=== PATIENT | male | born 1975 | race Caucasian/White ===

== ENCOUNTER 2022-01-24 10:26 | Outpatient (RCR) | payer OTHER, SELFPAY ==
[2022-01-24 10:54] VITALS: BMI 36.0
[2022-01-24 11:46] VITALS: BMI 36.0
== END 2022-04-16 08:23 | disposition home or self-care (01) ==
LOC: ANHDMC 10:26
PROVIDERS: PCP Internal Medicine; Visit Provider Internal Medicine
DX: E66.9 Obesity, unspecified (principal); Z71.3 Dietary counseling and surveillance
CPT/HCPCS: 97802

== ENCOUNTER 2025-03-04 17:37 | Outpatient (CLI) | payer OTHER, SELFPAY ==
--- OUTSIDE RECORDS SUMMARY | 2025-03-03 02:30 | XMS_ITS ---
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 Role Phone Darwin Quiroz DO Primary Care Provider Emmy Bansal Unavailable [phone] Allergies No Known Allergies REASON FOR VISIT 3 month f/u, Follow up psychological reason Medications Medication SIG (Take, Route, Frequency, Duration) Notes Start Date End Date Status Amphetamine-Dextroamphet amine 20 MG Tablet TAKE 1 TABLET BY MOUTH EVERY DAY IN THE MORNING Oral; Duration: 30 Days Not-Taking Adderall 20 MG Tablet Oral 08/26/2023 Not-Taking Amphetamine-Dextroamphet amine 5 MG Tablet 1 tablet Oral noon; Duration: 30 days 03/03/2025 Active Amphetamine-Dextroamphet amine 20 MG Tablet 1 tablet Oral day; Duration: 30 days 03/03/2025 Active Ketoconazole 2% Shampoo External 08/26/2023 Active Naproxen Sodium 550 MG Tablet Oral 08/26/2023 Active Adderall 5 MG Tablet Oral 08/26/2023 Not-Taking Cyclobenzaprine HCl 10 MG Tablet Oral 08/26/2023 Active Metoprolol Succinate ER 25 MG Tablet Extended Release 24 Hour Oral 08/26/2023 Active Metoprolol Succinate ER 50 MG Tablet Extended Release 24 Hour Oral 08/26/2023 Active Omeprazole 40 MG Capsule Delayed Release Oral 08/26/2023 Active Allopurinol 100 MG Tablet Oral 08/26/2023 Active Fluticasone Propionate Diskus 50 MCG/ACT Aerosol Powder Breath Activated Inhalation *Reorder from [employer] for eRx and Interaction Alerts* 08/26/2023 Active buPROPion HCl ER (SR) 100 MG Tablet Extended Release 12 Hour 1 tablet in the morning Oral twice a day; Duration: 90 days 03/03/2025 Active Fenofibrate 160 MG Tablet Oral 08/26/2023 Active amLODIPine Besylate 5 MG Tablet Oral 08/26/2023 Active Rosuvastatin Calcium 10 MG Tablet Oral 08/26/2023 Active hydroCHLOROthiazide 12.5 MG Capsule Oral 08/26/2023 Active Social History Tobacco Use: Social History Observation Description Date Details (start date - stop date) Former Smoker 09/19/1989 - 04/21/2019 Sex Assigned At : Social History Observation Description Sex Assigned At Male Social History Miscellaneous: Social Info Question Answer Notes Advance Care Planning Are you your own decision-maker Yes Do you have Power of Attorne y for Health or Medical? No Advance Directive Refused to discuss advance car e planning Sexual History: Social Info Question Answer Notes Sexual History Had sex in the past 12 months (vaginal, oral, or anal)? Yes with Women only Household: Social Info Question Answer Notes Household Marital status: Number of adults in household: 2 Number of children in household: 1 Level of education: professional schools/Masters /PhD With whom does the child live? with both parents Drug/Alcohol: Social Info Question Answer Notes Drugs Have you used drugs other than those for medical reasons in the past 12 months? No AUDIT-C (Standard) Did you have a drink containing alcohol in the past year? Yes How often did you have six or more drinks on one occasion in the past year? Less than monthly (1 point) How many drinks did you have on a typical day when you were drinking in the past year? 1 or 2 drinks (0 point) How often did you have a drink containing alcohol in the past year? Monthly or less (1 point) Points 2 Interpretation Negative Tobacco Use: Social Info Question Answer Notes Tobacco Control (Standard) When did you start smoking? 09/19/1989 When did you stop smoking? 04/21/2019 How long has it been since you last smoked? 5-10 years Tobacco use: Former smoker Additional Findings: Tobacco non-user Current no nsmoker Additional Details Category Social Info Options Details Migrated Social History Migrated Social History Alcohol Intake: Occasional 02/06/2018,Tobacco Years: Former smoker 01/09/2021,Smoking Status: 0 05/27/2023 Drug/Alcohol: Do you smoke marijuana? Den ies Do you drink alcohol? Yes 1 glas s monthly Vital Signs Blood pressure systolic 114 mm Hg 03/03/20 25 Blood pressure diastolic 82 mm Hg 025 Heart Rate 105 /min 03/03/2025 Respiratory Rate 16 /min 03/03/2025 Height 70.00 in 03/03/2025 Weight 267.6 lbs 03/03/2025 BMI 38.39 kg/m2 03/03/2025 Height-cm 177.8 cm 03/03/2025 Weight-kg 121.38 kg 03/03/2025 Encounters Encounter Location Date Provider Diagnosis [facility] [employer] [address] [place] [address] 03/03/2025 Emmy Redmond Major depressive disorder, recurrent, mild F33.0 ; Negative depression screening Z13.31 ; Generalized anxiety disorder F41.1 ; Attention-deficit hyperactivity disorder, combined type F90.2 and Other [facility] (current) drug therapy Z79.899 Assessments Encounter Date Diagnosis (ICD Code) Assessment Notes Treatment Notes Treatment Clinical Notes Section Notes 03/03/2025 Major depressive disorder, recurrent, mild (ICD-10 - F33.0) 1. depressive Wellbutrin SR 100 mg twice a day obtain labs PCP- see every 6 months SEE PCP with B/P HR- ON RX educated on all medications, benefits, side effects and risk, and educated on depression, anxiety, and ADHD, mood d/o and educated on compliance of medications, appointment's, continue therapy 2. Generalized anxiety disorder -stable Medication Management and Follow-Up- Plan:- Schedule follow-up appointments every 2-3 months to monitor the patient's response to the medication regimen.- Reinforce the importance of avoiding recreational drug use due to potential neurotoxicity and interactions with prescribed medications. 3. Attention deficit hyperactivity disorder, combined type - 08/14/24 received letter from PCP ok ADHD rx and being monitored B/P and RX by PCP patient educated on healthy diet and excise and healthy B/P and HR UDS random dextroamphetamine 20 mg in am and 5 mg noon ADHD stimulates education Discuss with patient risk of misuse, abuse, and addiction before prescribing stimulant medicines. 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 Educate patients and their families on these serious risks, proper storage of the medicine, and proper disposal of any unused medicine. Educated patient will monitor Throughout treatment, regularly assess and monitor them for signs and symptoms of nonmedical use, addiction, and potential diversion, which may be evidenced by more frequent renewal. requests than warranted by the prescribed dosage. Random UDS [place] prescription reviewed refer therapy 12/24/24 11 am Duong JUANIS 08/14/24 received letter from PCP approved ADHD rx and being monitored B/P and RX by PCP patient educated on healthy diet and excise and healthy B/P and HR discuss cardiovascular and BP and stimualtes use risk 4. HX Elevated blood pressure- improved on RX educated on healthy b/p 120/80 monitor b/p at home refer to PCP, heart healthy diet and excise limit salt intake limit soda intake and caffiene increase water ON B/P RX PCP schedule to see PCP and labs ordered by PCP . Long-term drug therapy 03/03/2025 Negative depression screening (ICD-10 - Z13.31) 1. depressive Wellbutrin SR 100 mg twice a day obtain labs PCP- see every 6 months SEE PCP with B/P HR- ON RX educated on all medications, benefits, side effects and risk, and educated on depression, anxiety, and ADHD, mood d/o and educated on compliance of medications, appointment's, continue therapy 2. Generalized anxiety disorder -stable Medication Management and Follow-Up- Plan:- Schedule follow-up appointments every 2-3 months to monitor the patient's response to the medication regimen.- Reinforce the importance of avoiding recreational drug use due to potential neurotoxicity and interactions with prescribed medications. 3. Attention deficit hyperactivity disorder, combined type - 08/14/24 received letter from PCP ok ADHD rx and being monitored B/P and RX by PCP patient educated on healthy diet and excise and healthy B/P and HR UDS random dextroamphetamine 20 mg in am and 5 mg noon ADHD stimulates education Discuss with patient risk of misuse, abuse, and addiction before prescribing stimulant medicines. 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 Educate patients and their families on these serious risks, proper storage of the medicine, and proper disposal of any unused medicine. Educated patient will monitor Throughout treatment, regularly assess and monitor them for signs and symptoms of nonmedical use, addiction, and potential diversion, which may be evidenced by more frequent renewal. requests than warranted by the prescribed dosage. Random UDS [place] prescription reviewed refer therapy 12/24/24 11 am Duong JUANIS 08/14/24 received letter from PCP approved ADHD rx and being monitored B/P and RX by PCP patient educated on healthy diet and excise and healthy B/P and HR discuss cardiovascular and BP and stimualtes use risk 4. HX Elevated blood pressure- improved on RX educated on healthy b/p 120/80 monitor b/p at home refer to PCP, heart healthy diet and excise limit salt intake limit soda intake and caffiene increase water ON B/P RX PCP schedule to see PCP and labs ordered by PCP . Long-term drug therapy 03/03/2025 Generalized anxiety disorder (ICD-10 - F41.1) 1. depressive Wellbutrin SR 100 mg twice a day obtain labs PCP- see every 6 months SEE PCP with B/P HR- ON RX educated on all medications, benefits, side effects and risk, and educated on depression, anxiety, and ADHD, mood d/o and educated on compliance of medications, appointment's, continue therapy 2. Generalized anxiety disorder -stable Medication Management and Follow-Up- Plan:- Schedule follow-up appointments every 2-3 months to monitor the patient's response to the medication regimen.- Reinforce the importance of avoiding recreational drug use due to potential neurotoxicity and interactions with prescribed medications. 3. Attention deficit hyperactivity disorder, combined type - 08/14/24 received letter from PCP ok ADHD rx and being monitored B/P and RX by PCP patient educated on healthy diet and excise and healthy B/P and HR UDS random dextroamphetamine 20 mg in am and 5 mg noon ADHD stimulates education Discuss with patient risk of misuse, abuse, and addiction before prescribing stimulant medicines. 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 Educate patients and their families on these serious risks, proper storage of the medicine, and proper disposal of any unused medicine. Educated patient will monitor Throughout treatment, regularly assess and monitor them for signs and symptoms of nonmedical use, addiction, and potential diversion, which may be evidenced by more frequent renewal. requests than warranted by the prescribed dosage. Random UDS [place] prescription reviewed refer therapy 12/24/24 11 am Duong JUANIS 08/14/24 received letter from PCP approved ADHD rx and being monitored B/P and RX by PCP patient educated on healthy diet and excise and healthy B/P and HR discuss cardiovascular and BP and stimualtes use risk 4. HX Elevated blood pressure- improved on RX educated on healthy b/p 120/80 monitor b/p at home refer to PCP, heart healthy diet and excise limit salt intake limit soda intake and caffiene increase water ON B/P RX PCP schedule to see PCP and labs ordered by PCP . Long-term drug therapy 03/03/2025 Attention-defici t hyperactivity disorder, combined type (ICD-10 - F90.2) 1. depressive Wellbutrin SR 100 mg twice a day obtain labs PCP- see every 6 months SEE PCP with B/P HR- ON RX educated on all medications, benefits, side effects and risk, and educated on depression, anxiety, and ADHD, mood d/o and educated on compliance of medications, appointment's, continue therapy 2. Generalized anxiety disorder -stable Medication Management and Follow-Up- Plan:- Schedule follow-up appointments every 2-3 months to monitor the patient's response to the medication regimen.- Reinforce the importance of avoiding recreational drug use due to potential neurotoxicity and interactions with prescribed medications. 3. Attention deficit hyperactivity disorder, combined type - 08/14/24 received letter from PCP ok ADHD rx and being monitored B/P and RX by PCP patient educated on healthy diet and excise and healthy B/P and HR UDS random dextroamphetamine 20 mg in am and 5 mg noon ADHD stimulates education Discuss with patient risk of misuse, abuse, and addiction before prescribing stimulant medicines. 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 Educate patients and their families on these serious risks, proper storage of the medicine, and proper disposal of any unused medicine. Educated patient will monitor Throughout treatment, regularly assess and monitor them for signs and symptoms of nonmedical use, addiction, and potential diversion, which may be evidenced by more frequent renewal. requests than warranted by the prescribed dosage. Random UDS [place] prescription reviewed refer therapy 12/24/24 11 am Duong OLIVAREZ 08/14/24 received letter from PCP approved ADHD rx and being monitored B/P and RX by PCP patient educated on healthy diet and excise and healthy B/P and HR discuss cardiovascular and BP and stimualtes use risk 4. HX Elevated blood pressure- improved on RX educated on healthy b/p 120/80 monitor b/p at home refer to PCP, heart healthy diet and excise limit salt intake limit soda intake and caffiene increase water ON B/P RX PCP schedule to see PCP and labs ordered by PCP . 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 depressive Wellbutrin SR 100 mg twice a day obtain labs PCP- see every 6 months SEE PCP with B/P HR- ON RX educated on all medications, benefits, side effects and risk, and educated on depression, anxiety, and ADHD, mood d/o and educated on compliance of medications, appointment's, continue therapy 2. Generalized anxiety disorder -stable Medication Management and Follow-Up- Plan:- Schedule follow-up appointments every 2-3 months to monitor the patient's response to the medication regimen.- Reinforce the importance of avoiding recreational drug use due to potential neurotoxicity and interactions with prescribed medications. 3. Attention deficit hyperactivity disorder, combined type - 08/14/24 received letter from PCP ok ADHD rx and being monitored B/P and RX by PCP patient educated on healthy diet and excise and healthy B/P and HR UDS random dextroamphetamine 20 mg in am and 5 mg noon ADHD stimulates education Discuss with patient risk of misuse, abuse, and addiction before prescribing stimulant medicines. 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 Educate patients and their families on these serious risks, proper storage of the medicine, and proper disposal of any unused medicine. Educated patient will monitor Throughout treatment, regularly assess and monitor them for signs and symptoms of nonmedical use, addiction, and potential diversion, which may be evidenced by more frequent renewal. requests than warranted by the prescribed dosage. Random UDS [place] prescription reviewed refer therapy 12/24/24 11 am Duong [facility] 08/14/24 received letter from PCP approved ADHD rx and being monitored B/P and RX by PCP patient educated on healthy diet and excise and healthy B/P and HR discuss cardiovascular and BP and stimualtes use risk 4. HX Elevated blood pressure- improved on RX educated on healthy b/p 120/80 monitor b/p at home refer to PCP, heart healthy diet and excise limit salt intake limit soda intake and caffiene increase water ON B/P RX PCP schedule to see PCP and labs ordered by PCP . Long-term drug therapy Plan Of Treatment Medication Medication Name Sig Start Date Stop Date Notes Amphetamine-Dextroamphetamin e 5 MG Tablet 1 tablet Oral noon; Duration: 30 days 03/03/2025 Amphetamine-Dextroamphetamin e 20 MG Tablet 1 tablet Oral day; Duration: 30 days 03/03/2025 buPROPion HCl ER (SR) 100 MG Tablet Extended Release 12 Hour 1 tablet in the morning Oral twice a day; Duration: 90 days 03/03/2025 Next Appt Details Follow Up: 3 Months, Reason: medication follow up Provider Name:Duogn harp, 03/09/2025 08:00:00 AM, [facility] [address], [address], Provider Name:Duong harp, 03/23/2025 08:00:00 AM, [facility] [address], [address], [address], Provider Name:Duong harp, 04/06/2025 08:00:00 AM, [facility] [address], [address], [address], Provider Name:Emmy Redmond , 06/03/2025 08:30:00 AM, [facility] [address], [address], [address], History and Physical Notes * HPI (History of Present Illness) Category Sub-Category Detail Notes Category Not es History of Presenting Problem Depression screening done Depression screening PHQ-9 Little interest or pleasure in doing things: Not at all ADHD Follow-Up Context: no major life stressors; lives back and forth from [place] and [place] and daughter travels back and forth Follow up anxiety and depression chronic stable over last few months report been pretty good, is in [place] and brother and I may do Thanksgiving and I been doing projects around house and I been busy to make sure I have projects to do, 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 and I am doing all things and trying to not let it be stressful, and denies depression s/s, just little sad and down r/t miss , no hopeless or helpless, anxiety been not so much I miss a lot I talk to her more, in PT for back and helps less back spasm, and I am having Xray shins to see ortho, I am doing paper work for disability for , and sleep and appetite both great I have gained weight and I am going to watch diet and gym, concentration and focus good, rx doing good no s/e, I will watch UTube to 8-9 pm then sleep and working on getting more things done, no s/e, motivation, interest, and energy good, been cleaning around house more also, no carlos, no psychosis, no SI/HI, daughter is home [place] and in RN program and plan to go to [place]. 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 denies SI/HI no plans or intent no thoughts harm to self or others, no past attempts filed for disability with and get 20%- patient reported will send forms time to redo forms 08/26/23 Suicide AssessmentReported by patient.Spectrum: #0 of suicidal attempts; family history of suicideNotes:denies SI/HI no plans or intent no thoughts harm to self or others, no past attempts FH mom attempts, no self cutting or self harm no psychiatric hospital and weapons in home Feeling down, depressed, or hopeless: No t at all Trouble falling or staying asleep, or sl eeping too much: Not at all Feeling tired or having little energy: N ot at all Poor appetite or overeating: Not at all Feeling bad about yourself o r that you are a failure, or have let yourself or your family down: Not at all Trouble concentrating on thi ngs, such as reading the newspaper or watching television: Not at all Moving or speaking so slowly that other people could have noticed; or the opposite, being so fidgety or restless that you have been moving around a lot more than usual: Not at all Thoughts that you would be b allan off or of hurting yourself in some way: Not at all Total Score: 0 Interpretation: Minimal Depression Intervention Depression Screening Findings: N egative Follow-Up for Depression: Psychiatric fo llow-up Suicide Risk Assessment Performed: 03/03 denies SI/HI no plans or intent Depression Screening MORGAN-7 (2018 Edition) Feelin g nervous, anxious, or on edge: Not at all Not being able to stop or control worryi ng: Not at all Worrying too much about different things : Not at all Trouble relaxing: Not at all Being so restless that it is hard to sit still: Not at all Becoming easily annoyed or irritable: No t at all Feeling afraid as if something awful lani ht happen: Not at all Total MORGAN-7 Score: 0 If you checked any problems, how difficult have they made it for you to do your work, take care of things at home, or get along with other people?: Not difficult at all Interpretation of Total: (0 to 4) No Anx iety [place]-Suicide Severity Rating Scale Suicide Risk (CSRS-screener) in the past one month Have you wished you were or wished you could go to sleep and not wake up?: No in the past one month Have y ou actually had any thoughts of killing yourself?: No Have you ever done anything, started to do anything, or prepared to do anything to end your life?: No Examination Category Sub-Category Detail Notes Category Not es Psychiatry Appearance: well-groomed, we ll-nourished, appears stated age Attitude: cooperative Psychomotor activity: within normal rang e Abnormal body movements: none Attention: good Degree of awareness of surroundings: wit hin normal limits Orientation: awake, alert and theo ented x 3 Affect / mood: appropriate, full ra nge Speech / language: appropriate pitch/mo dulation, clear and coherent, proper grammar used Insight: good Judgement: good Thought process: intact Thought content: appropriate Perceptual disorders: no perceptual diso rder noted Aggression: none Anger control: none Suicidal ideation: none Homicidal ideation: none Intellectual functioning: average Impulse control: good Memory status: no impairment Delusions: no Hallucinations: no Calculation - Intellectual function: ave rage Gait steady Progress Notes * MAYA LOPEZ SDOB:1975 (49 yo M)Acc No.[id number]:03/03/2025 Patient: Ha PALACIO MAYA S Provider: SARAH DEGROOT :1975 A ge:49 Y S ex:Male Date:03/03/2025 Address:[address] [place], [place] [id number] Pcp:Darwin Quiroz DO Subjective: * Chief Complaints: * 1 . 3 month f/u. 2. Follow up psychological reason. * HPI: D epression Screening: MORGAN-7 (2018 Edition) F eeling nervous, anxious, or on edge N ot at all N ot being able to stop or control worrying?Not at all W orrying too much about different things N ot at all T rouble relaxing N ot at all B eing so restless that it is hard to sit still N ot at all B ecoming easily annoyed or irritable N ot at all F eeling afraid as if something awful might happen N ot at all T otal MORGAN-7 Score 0 I f you checked any problems, how difficult have they made it for you to do your work, take care of things at home, or get along with other people? N ot difficult at all I nterpretation of Total ( 0 to 4) No Anxiety [place]-Suicide Severity Rating Scale: Suicide Risk (CSRS-screener) i n the past one month Have you wished you were or wished you could go to sleep and not wake up? N o i n the past one month Have you actually had any thoughts of killing yourself? N o H ave you ever done anything, started to do anything, or prepared to do anything to end your life? N o D epression screening: PHQ-9 L ittle interest or pleasure in doing things?Not at all F eeling down, depressed, or hopeless N ot at all T rouble falling or staying asleep, or sleeping too much N ot at all F eeling tired or having little energy N ot at all P oor appetite or overeating N ot at all F eeling bad about yourself or that you are a failure, or have let yourself or your family down N ot at all T rouble concentrating on things, such as reading the newspaper or watching television N ot at all M oving or speaking so slowly that other people could have noticed; or the opposite, being so fidgety or restless that you have been moving around a lot more than usual N ot at all T houghts that you would be better off or of hurting yourself in some way N ot at all T otal Score 0 I nterpretation M inimal Depression Intervention D epression Screening Findings N egative F ollow-Up for Depression P sychiatric follow-up S uicide Risk Assessment Performed 1 05/03/2024 denies SI/HI no plans or intent ADHD Follow-Up Context: n o major life stressors; lives back and forth from [place] and daughter travels back and forth Follow up anxiety and depression chronic stable over last few months report been pretty good, is in [place] and brother and I may do Thanksgiving and I been doing projects around house and I been busy to make sure I have projects to do, 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 and I am doing all things and trying to not let it be stressful, and denies depression s/s, just little sad and down r/t miss , & #160;no hopeless or helpless, anxiety been not so much I miss a lot I talk to her more, in PT for back and helps less back spasm, and I am having Xray shins to see ortho, I am doing paper work for disability for [employer], and sleep and appetite both great I have gained weight and I am going to watch diet and gym, concentration and focus good, rx doing good no s/e, I will watch UTube to 8-9 pm then sleep and working on getting more things done, no s/e, motivation, interest, and energy good,? been cleaning around house more also, no carlos, no psychosis, no SI/HI, daughter is home [place] and in RN program and plan to go to [place]. 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 H istory of Presenting Problem: Depression screening done. * ROS: P erformance Met: N ormal blood pressure reading documented, follow-up not required ( [id number]) Patient reports d ry mouth. H e reports no palpitations; H TN- see PCP. no chest pain H e reports arthralgias/joint pain (hx knee issues hx PT ) no muscle aches, no muscle weakness, reported back pain in PT, no swelling in the extremities, no neck pain, and no difficulty walking. gout hx in PT for back pain He reports no loss of consciousness, no weakness, no numbness, no seizures, no dizziness, no migraines, no tremor, and no gait dysfunction; hx ulnar nerve rt schedule to have nerve study. He reports no fever, no significant weight gain, and no significant weight loss. He reports wears glasses H e reports no cough and no shortness of breath. He reports no abdominal pain, no nausea, no vomiting, no constipation, normal appetite, reported weight gain and no diarrhea. He reports no difficulty urinating and no increased frequency. H e reports no depression, no sleep disturbances, feeling safe in a relationship, no alcohol abuse, no anxiety, no hallucinations, no suicidal thoughts, no mood swings, no memory loss, and no agitation. He reports no fatigue. * Medical History: * Surgical History: * Social History: T obacco Use: T obacco Control (Standard) W hen did you start smoking? 0 09/19/1989 W hen did you stop smoking? 0 04/21/2019 H ow long has it been since you last smoked??5-10 years T obacco use: F ormer smoker A dditional Findings: Tobacco non-user C urrent nonsmoker M igrated Social History: M igrated Social History: Alcohol Intake: Occasional 02/06/2018,Tobacco Years: Former smoker 01/09/2021,Smoking Status: 0 05/27/2023. S exual History: S exual History H ad sex in the past 12 months (vaginal, oral, or anal)? Y es w ith W omen only D rug/Alcohol: D rugs H ave you used drugs other than those for medical reasons in the past 12 months? N o Do you smoke marijuana?: Denies. Do you drink alcohol?: Yes 1 glass monthly. AUDIT-C (Standard) D id you have a drink containing alcohol in the past year? Y es H ow often did you have six or more drinks on one occasion in the past year? L ess than monthly (1 point) H ow many drinks did you have on a typical day when you were drinking in the past year? 1 or 2 drinks (0 point) H ow often did you have a drink containing alcohol in the past year? M onthly or less (1 point) P oints 2 I nterpretation N egative H ousehold: H ousehold M arital status: m arried N umber of adults in household: 2 N umber of children in household: 1 L evel of education: [employer]/PhD W ith whom does the child live? w ith both parents M iscellaneous: A dvance Care Planning A re you your own decision-maker Y es D o you have Power of Lower School Spanish Teacher for Health or Medical? N o A dvance Directive R efused to discuss advance care planning S ocial History Verified. * Medications: T aking Rosuvastatin Calcium 10 MG Tablet Oral , Taking amLODIPine Besylate 5 MG Tablet Oral , Taking Fenofibrate 160 MG Tablet Oral , Taking hydroCHLOROthiazide 12.5 MG Capsule Oral , Taking Allopurinol 100 MG Tablet Oral , Taking Omeprazole 40 MG Capsule Delayed Release Oral , Taking Metoprolol Succinate ER 50 MG Tablet Extended Release 24 Hour Oral , Taking Fluticasone Propionate Diskus 50 MCG/ACT Aerosol Powder Breath Activated Inhalation , Notes to Pharmacist: *Reorder from [facility] for eRx and Interaction Alerts*, Taking Cyclobenzaprine HCl 10 MG Tablet Oral , Taking Metoprolol Succinate ER 25 MG Tablet Extended Release 24 Hour Oral , Taking Naproxen Sodium 550 MG Tablet Oral , Taking Ketoconazole 2% Shampoo External , Taking buPROPion HCl ER (SR) 100 MG Tablet Extended Release 12 Hour 1 tablet in the morning Oral twice a day , Taking Amphetamine-Dextroamphetamine 20 MG Tablet 1 tablet Oral day , Taking Amphetamine-Dextroamphetamine 5 MG Tablet 1 tablet Oral noon , Not-Taking Adderall 5 MG Tablet Oral , Not-Taking Adderall 20 MG Tablet Oral , Not-Taking Amphetamine-Dextroamphetamine 20 MG Tablet TAKE 1 TABLET BY MOUTH EVERY DAY IN THE MORNING Oral , Discontinued buPROPion HCl ER (SR) 100 MG Tablet Extended Release 12 Hour 1 tablet in the morning Oral twice a day , Medication List reviewed and reconciled with the patient * Allergies: N .K.D.A. Allergies Verified. Objective: * Vitals: B P:114/82mm Hg, HR:105/min, RR:16/min, Wt:267.6lbs, Wt-k.38 kg, Ht: 70.00 in, Ht-cm: 177.8 cm, BMI:38.39Index, Body Surface Area: 2.45. * Examination: P sychiatry: Appearance: w ell-groomed, well-nourished, appears stated age. Abnormal body movements: n one. Affect / mood: a ppropriate, full range. Aggression: n one. Anger control: n one. Attention: g ood. Attitude: c ooperative. Gait s teady. Homicidal ideation: n one. Suicidal ideation: n one. Memory status: n o impairment. Degree of awareness of surroundings: w ithin normal limits.? Delusions: n o. Hallucinations: n o. Impulse control: g ood. Insight: g ood. Intellectual functioning: a verage. Calculation - Intellectual function: a verage. Judgement: g ood. Orientation: a wake, alert and oriented x 3. Perceptual disorders: n o perceptual disorder noted. Psychomotor activity: w ithin normal range. Speech / language: a ppropriate pitch/modulation, clear and coherent, proper grammar used. Thought content: a ppropriate. Thought process: i ntact. Assessment: * Assessment: 1. M ajor depressive disorder, recurrent, mild - F33.0 (Primary) 2 . N egative depression screening - Z13.31 3 . G eneralized anxiety disorder - F41.1 4 . A ttention-deficit hyperactivity disorder, combined type - F90.2 5. [facility] (current) drug therapy - Z79.899 1. depressive Wellbutrin SR 100 mg twice a day obtain labs PCP- see every 6 months SEE PCP with B/P HR- ON RX educated on all medications, benefits, side effects and risk, and educated on depression, anxiety, and ADHD, mood d/o and educated on compliance of medications, appointment's, continue therapy 2. Generalized anxiety disorder -stable Medication Management and Follow-Up- Plan:- Schedule follow-up appointments every 2-3 months to monitor the patient's response to the medication regimen.- Reinforce the importance of avoiding recreational drug use due to potential neurotoxicity and interactions with prescribed medications. 3. Attention deficit hyperactivity disorder, combined type - 08/14/24 received letter from PCP ok ADHD rx and being monitored B/P and RX by PCP patient educated on healthy diet and excise and healthy B/P and HR UDS random dextroamphetamine 20 mg in am and 5 mg noon ADHD stimulates education Discuss with patient risk of misuse, abuse, and addiction before prescribing stimulant medicines. 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 Educate patients and their families on these serious risks, proper storage of the medicine, and proper disposal of any unused medicine. Educated patient will monitor Throughout treatment, regularly assess and monitor them for signs and symptoms of nonmedical use, addiction, and potential diversion, which may be evidenced by more frequent renewal. requests than warranted by the prescribed dosage. Random UDS [place] prescription reviewed refer therapy 12/24/24 11 am Duong JUANIS 08/14/24 received letter from PCP approved ADHD rx and being monitored B/P and RX by PCP patient educated on healthy diet and excise and healthy B/P and HR discuss cardiovascular and BP and stimualtes use risk 4. HX Elevated blood pressure- improved on RX educated on healthy b/p 120/80 monitor b/p at home refer to PCP, heart healthy diet and excise limit salt intake limit soda intake and caffiene increase water ON B/P RX PCP schedule to see PCP and labs ordered by PCP . Long-term drug therapy Plan: * Treatment: 2. A ttention-deficit hyperactivity disorder, combined type Refill Amphetamine-Dextroamphetamine Tablet, 20 MG, 1 tablet, Oral, day, 30 days, 30, Refills 0;?Refill Amphetamine-Dextroamphetamine Tablet, 5 MG, 1 tablet, Oral, noon, 30 days, 30 Tablet, Refills 0. * Procedure Codes: 9 6127 BEHAV ASSMT W/SCORE & DOCD/STAND INSTRUMENT, 1036F TOBACCO NON-USER, G2211 VISIT COMPLEXITY INHERENT TO ONGOING CARE RELATED TO A PATIENT'S SINGLE, SERIOUS CONDITION OR A COMPLEX CONDITION * Preventive Medicine: Screenings: D epression screening Have you had a recent depression screening? Y es * Follow Up: 3 Months (Reason: medication follow up) Billing Information: * Visit Code: 98597 OFFICE OUTPATIENT VISIT 25 MINUTES DETAILED HISTORY AND EXAM/MODERATE MEDICAL DECISION MAKING. * Procedure Codes: 59307 BEHAV ASSMT W/SCORE & DOCD/STAND INSTRUMENT. 1036F TOBACCO NON-USER. G2211 VISIT COMPLEXITY INHERENT TO ONGOING CARE RELATED TO A PATIENT'S SINGLE, SERIOUS CONDITION OR A COMPLEX CONDITION. * [facility] Sign off status: Completed true * Provider: SARAH DEGROOT Date: 05/03/2024 Generated for Jacquelyn Noonan/Ana María on: 05/04/2024 08:25 PM PRACTICAL NURSING [facility]ACULTY
--- NOTE | ~2025-03-04 | XR_ITS ---
XR tibia fibula LT 2V INDICATION: S86.891A - Other injury of other muscle(s) and tendon(s) ... . COMPARISON: None. FINDINGS: Frontal and lateral views of the left tibia and fibula demonstrate no acute fracture or dislocation. IMPRESSION: Radiographic examination of the left tibia and fibula demonstrates no acute fracture or dislocation. Reviewed, dictated and finalized at location S. X [employer]LECT[employer] WIREMAN IMPRESSION: Radiographic examination of the left tibia and fibula demonstrates no acute fra cture or dislocation.
--- NOTE | ~2025-03-04 | XR_ITS ---
XR tibia fibula RT 2V INDICATION: S86.891A - Other injury of other muscle(s) and tendon(s) ... . COMPARISON: None. FINDINGS: Frontal and lateral views of the right tibia and fibula demonstrate no acute fracture or dislocation. IMPRESSION: No acute fracture or dislocation. Reviewed, dictated and finalized at location S. RIALS COORDINATOR
--- OUTSIDE RECORDS SUMMARY | 2025-03-04 20:25 | XMS_ITS | Patient Health Record ---
Author Organization [facility] [employer] [facility] Address [address] [facility] [address] [place] [address] Care Team Providers Care Ticket Agent Name Role Phone Darwin Quiroz DO Primary Care Provider Emmy Bansal Unavailable [phone] Duong Torres Unavailable [phone] Allergies No Known Allergies Results Component Value Reference Range Notes UDT Reviewed date:09/02/2024 12:16:46 PM Interpretation: Performing Lab: Notes/Report: Amphetamine (AMP) POS 0 - 1000 ng/ml Buprenorphine (BUP) NEG 0 - 10 ng/ml Oxazepam (BZO) NEG 0 - 300 ng/ml Cocaine (TJ) NEG 0 - 300 ng/ml Methamphetamine (mAMP) NEG 0 - 300 ng/ml Methylenedioxymethamphetamine (MDMA) NEG 0 - 500 ng/ml Morphine (MOP) NEG 0 - 25 ng/ml Methadone (MTD) NEG 0 - 300 ng/ml Oxycodone (OXY) NEG 0 - 300 ng/ml THC NEG 0 - 50 ng/ml x NEG 0 - 1000 ng/ml x NEG 0 - 1000 ng/ml x NEG 0 - 300 ng/ml x NEG 0 - 300 ng/ml x NEG 0 - 300 ng/ml UDT Reviewed date:12/02/2024 09:43:51 AM Interpretation: Performing Lab: Notes/Report: Amphetamine (AMP) P 0 - 1000 ng/ml Buprenorphine (BUP) N 0 - 10 ng/ml Oxazepam (BZO) N 0 - 300 ng/ml Cocaine (TJ) N 0 - 300 ng/ml Methamphetamine (mAMP) N 0 - 300 ng/ml Methylenedioxymethamphetamine (MDMA) N 0 - 500 ng/ml Morphine (MOP) N 0 - 25 ng/ml Methadone (MTD) N 0 - 300 ng/ml Oxycodone (OXY) N 0 - 300 ng/ml THC N 0 - 50 ng/ml x N 0 - 1000 ng/ml x N 0 - 1000 ng/ml x N 0 - 300 ng/ml x N 0 - 300 ng/ml Validity Testing Reviewed date:09/17/2024 04:27:30 PM Interpretation: Performing Lab: Notes/Report: The specimen was rejected for analysis. Please contact clinic for information. NEED PHYSICIAN SIGNATURE Reviewed date:09/17/2024 04:27:10 PM Interpretation: Performing Lab: Notes/Report: The specimen was rejected for analysis. Please contact clinic for information. MISC REJECT Reviewed date:09/17/2024 04:26:57 PM Interpretation: Performing Lab: Notes/Report: The specimen was rejected for analysis. Please contact clinic for information. An exception occurred while processing this report and so it has incomplete data. Please contact [employer] for assistance. PDF Report [email or web address] Stimulants Reviewed date:09/17/2024 04:27:47 PM Interpretation: Performing Lab: Notes/Report: The specimen was rejected for analysis. Please contact clinic for information. Reason For Referral No Information Medications Medication SIG (Take, Route, Frequency, Duration) Notes Start Date End Date Status Fenofibrate 160 MG Tablet Oral 08/26/2023 Active amLODIPine Besylate 5 MG Tablet Oral 08/26/2023 Active Rosuvastatin Calcium 10 MG Tablet Oral 08/26/2023 Active Ketoconazole 2% Shampoo External 08/26/2023 Active Naproxen Sodium 550 MG Tablet Oral 08/26/2023 Active Metoprolol Succinate ER 50 MG Tablet Extended Release 24 Hour Oral 08/26/2023 Active Amphetamine-Dextroamphet amine 20 MG Tablet TAKE 1 TABLET BY MOUTH EVERY DAY IN THE MORNING Oral; Duration: 30 Days Not-Taking Omeprazole 40 MG Capsule Delayed Release Oral 08/26/2023 Active Adderall 20 MG Tablet Oral 08/26/2023 Not-Taking Allopurinol 100 MG Tablet Oral 08/26/2023 Active Adderall 5 MG Tablet Oral 08/26/2023 Not-Taking hydroCHLOROthiazide 12.5 MG Capsule Oral 08/26/2023 Active Metoprolol Succinate ER 25 MG Tablet Extended Release 24 Hour Oral 08/26/2023 Active Amphetamine-Dextroamphet amine 5 MG Tablet 1 tablet Oral noon; Duration: 30 days 03/03/2025 Active Cyclobenzaprine HCl 10 MG Tablet Oral 08/26/2023 Active Fluticasone Propionate Diskus 50 MCG/ACT Aerosol Powder Breath Activated Inhalation *Reorder from [employer] for eRx and Interaction Alerts* 08/26/2023 Active buPROPion HCl ER (SR) 100 MG Tablet Extended Release 12 Hour 1 tablet in the morning Oral twice a day; Duration: 90 days 03/03/2025 Active Amphetamine-Dextroamphet amine 20 MG Tablet 1 tablet Oral day; Duration: 30 days 03/03/2025 Active Immunizations Vaccine Route Administration Date Status Comme nts Influenza virus vaccine, quadrivalent (IIV4), split virus, 0.25 mL dosage Unknown 02/02/2015 Administered Influenza, unspecified formulation Unknown 12/20/2021 A dministered Moderna Covid-19 Vaccine 1st dose Unknown 04/17/2021 Ad ministered Pfizer Biontech Covid-19 Vac cine 2nd dose Unknown 07/26/2020 Administered Pfizer Biontech Covid-19 Vac cine 2nd dose Unknown 08/21/2020 Administered Td (adult), adsorbed Unknown 04/21/2014 Administered Social History Tobacco Use: Social History Observation [...] drink alcohol? Yes 1 glas s monthly Section Notes: Substance UseDo you or have you ever smoked tobacco?: Former smokerHow many years have you smoked tobacco?: 0How much tobacco do you smoke?: NoneDo you or have you ever used any other forms of tobacco or nicotine?: YesDo you or have you ever used e-cigarettes or vape?: Former user of electronic cigarettesDo you or have you ever used smokeless tobacco?: Never used smokeless tobaccoHow much tobacco do you chew?: noneWhat was the date of your most recent tobacco screening?: 08/26/2023Has tobacco cessation counseling been provided?: NoWhat is your level of alcohol consumption?: OccasionalHow many years have you consumed alcohol?: 23Have you ever been counseled for unhealthy alcohol use?: NoDo you use any illicit or recreational drugs?: NoHave you used IV drugs?: NoWhat is your level of caffeine consumption?: ModerateEducation and OccupationWhat is the highest grade or level of school you have completed or the highest degree you have received?: Master's degree (e.g., MA, MS, El, MEd, 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, 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)Are you currently in school?: NoAre you currently employed?: YesWho is your employer?: Working class benefitsMarriage and SexualityWhat is your relationship status?: MarriedAre you sexually active?: YesDo you use protection during sex?: UsuallyHow many children do you have?: 3Home and EnvironmentAre you a caregiver?: NoDo you have smoke and carbon monoxide detectors in your home?: YesAre you passively exposed to smoke?: NoAre there any smokers in your house?: NoAre there any guns present in your home?: YesDiet and ExerciseWhat type of diet are you following?: RegularLifestyleDo you feel stressed (tense, restless, nervous, or anxious, or unable to sleep at night)?: Only a littleDo you use your seat belt or car seat routinely?: YesAdvance DirectiveDo you have an advance directive?: NoDo you have a medical power of real estate associate attorney?: NoPublic Health and TravelHave you been to an area known to be high risk for COVID-19?: NoActivities of Daily LivingAre you able to care for yourself?: YesAre you blind or do you have difficulty seeing?: NoAre you deaf or do you have serious difficulty hearing? : NoDo you have difficulty concentrating, remembering or making decisions?: NoDo you have difficulty walking or climbing stairs?: NoDo you have difficulty dressing or bathing?: NoDo you have difficulty doing errands alone?: NoAre you able to walk?: Yes: walks without restrictionsDo you have transportation difficulties?: NoOtherEducation: Post GraduateFamily history of heart disease?: NoHigh blood pressure: YesHigh Cholesterol: YesHigh number of sexual partners: NoPast steroid/HgH use?: NoGender Identity and LGBTQ IdentityGender identity: Identifies as MaleAssigned sex at : MaleSexual orientation: Straight or heterosexual Problems Problem Type SNOMED Code ICD Code Onset Dates Problem Status W/U Status Risk Notes Problem Mild recurrent major depression (49491414) Major depressive disorder, recurrent, mild (F33.0) 08/26/19 24 Active confirmed Problem Generalized anxiety disorder (84511259) Generalized anxiety disorder (F41.1) 08/26/19 24 Active confirmed Problem Attention deficit hyperactivity disorder, combined type (48044885) Attention-deficit hyperactivity disorder, combined type (F90.2) 08/26/19 24 Active confirmed Problem Screening for cardiovascular system disease (670826673) Encounter for screening for cardiovascular disorders (Z13.6) Active confirmed Problem Long-term current use of drug therapy (728979165) Other 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 (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0 ; Generalized anxiety disorder F41.1 ; Attention-deficit hyperactivity disorder, combined type F90.2 and Other 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 (current) drug therapy Z79.899 [facility] [address] [address] 06/28/2024 Emmy Redmond Encounter for screen ing for cardiovascular disorders Z13.6 ; Major depressive disorder, recurrent, mild F33.0 ; Generalized anxiety disorder F41.1 ; Attention-deficit hyperactivity disorder, combined type F90.2 and Other correction (current) drug therapy Z79.899 [facility] [address] [facility] [address] [address] 09/02/2024 Emmy Redmond Negative depression screening Z13.31 ; Major depressive disorder, recurrent, mild F33.0 ; Encounter for screening for cardiovascular disorders Z13.6 ; Generalized anxiety disorder F41.1 ; Attention-deficit hyperactivity disorder, combined type F90.2 and Other 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 (current) drug therapy Z79.899 [facility] [address] [facility] [address] [place] [address] 12/02/2024 Emmy Redmond Major depressive disorder, recurrent, mild F33.0 ; Negative depression screening Z13.31 ; Encounter for screening for cardiovascular disorders Z13.6 ; Generalized anxiety disorder F41.1 ; Attention-deficit hyperactivity disorder, combined type F90.2 and Other correction (current) drug therapy Z79.899 [facility], [facility] [address] [place] [address] 12/24/2024 Duong Torres Depression, major, recurrent, mild F33.0 ; Anxiety disorder, unspecified F41.9 and ADHD (attention deficit hyperactivity disorder), combined type F90.2 [facility], [facility] [address] [place] [address] 01/10/2025 Duong Torres Depression, major, recurrent, mild F33.0 and Generalized anxiety disorder F41.1 [facility], [facility] [address] [place] [address] 01/24/2025 Duong Torres Depression, major, recurrent, mild F33.0 and Generalized anxiety disorder F41.1 [facility], [facility] [address] [place] [address] 02/07/2025 Duong Torres Depression, major, recurrent, mild F33.0 and Generalized anxiety disorder F41.1 [facility], [facility] [address] [place] [address] 02/21/2025 Duong Torres Depression, major, recurrent, mild F33.0 and Generalized anxiety disorder F41.1 [facility], [facility] [address] [place] [address] 03/03/2025 Emmy Therronald Major depressive disorder, recurrent, mild F33.0 ; Negative depression screening Z13.31 ; Generalized anxiety disorder F41.1 ; Attention-deficit hyperactivity disorder, combined type F90.2 and Other correction (current) drug therapy Z79.899 [facility], [facility] [address] [place] [address] 03/19/2024 Emmy Thery Attention-deficit hyperactivity disorder, combined type F90.2 [facility], [facility] [address] [place] [address] 10/11/[address] [facility], [facility] [address] [place] [address] 04/26/2024 Emmy Thery Attention-deficit hyperactivity disorder, combined type F90.2 [facility], [facility] [address] [place] [address] 08/20/2024 Emmy Therronald Attention-deficit hyperactivity disorder, combined type F90.2 [place] [id number] [facility] [address] [facility] [address] [place] [address] 11/10/2024 Emmy Thery Attention-deficit hyperactivity disorder, combined type F90.[address] [facility] [address] [place] [address] 12/17/2024 Emmy Thery Attention-deficit hyperactivity disorder, combined type F90.[address] [facility] [address] [place] [address] 01/25/2025 Emmy Thery Attention-deficit hyperactivity disorder, combined type F90.[address] [address] 01/25/2025 Emmy Thery Attention-deficit hyperactivity disorder, combined type F90.2 Assessments Encounter Date Diagnosis (ICD Code) Assessment Notes Treatment Notes Treatment Clinical Notes Section Notes 03/19/2024 Attention-defici t hyperactivity disorder, combined type (ICD-10 - F90.2) 03/30/2024 Major depressive disorder, recurrent, mild (ICD-10 - F33.0) 1. major depressive episodes, mild - Wellbutrin SR 100 mg twice a day obtain labs PCP- see every 6 months SEE PCP with B/P HR educated on all medications, benefits, side effects [...] 3. Attention deficit hyperactivity disorder, combined type -08/14/24 received letter from PCP john to re-start ADHD rx and being monitored B/P and RX by PCP patient educated on healthy diet and excise and healthy B/P and HR UDS random dextroamphetamine 20 mg in am and 5 mg noon Last sent 04/13 no refill needed today ADHD stimulates education Discuss with patient risk of misuse, abuse, and addiction before prescribing stimulant medicines. 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 Random UDS [place] prescription reviewed refer to Dorie for therapy and work on ADHD Educated patient unable to switch pharmacy or switch dosing for control substance once sent to pharmacy related to shortages or other reasons 08/14/24 received letter from PCP john to re-start ADHD rx and being monitored B/P and RX by PCP patient educated on healthy diet and excise and healthy B/P and HR 4. Long-term drug therapy 04/26/2024 Attention-defici t hyperactivity disorder, combined type (ICD-10 - F90.2) 08/20/2024 Attention-defici t hyperactivity disorder, combined type (ICD-10 - F90.2) 09/02/2024 Major depressive disorder, recurrent, mild (ICD-10 - [...] type - 08/14/24 received letter from PCP john ADHD rx and being monitored B/P and RX by PCP patient educated on healthy diet and excise and healthy B/P and HR UDS random dextroamphetamine 20 mg in am and 5 mg noon ADHD stimulates education Discuss with patient risk of misuse, abuse, and addiction before prescribing stimulant medicines. 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 Random UDS [place] prescription reviewed refer to Dorie for therapy and work on ADHD 08/14/24 received letter from PCP approved ADHD rx and being monitored B/P and RX by PCP patient educated on healthy diet and excise and healthy B/P and HR discuss cardiovascular and BP and stimualtes use risk 4. Elevated blood pressure- improved on RX educated on healthy b/p 120/80 monitor b/p at home refer to PCP, heart healthy diet and excise limit salt intake limit soda intake and caffiene increase water ON B/P RX PCP schedule to see PCP and labs ordered by PCP . Long-term drug therapy 06/28/2024 Encounter for screening for cardiovascular disorders (ICD-10 - Z13.6) 1. depressive Wellbutrin SR 100 mg twice a day obtain labs PCP- see every 6 months SEE PCP with B/P HR educated on all medications, benefits, side effects [...] 3. Attention deficit hyperactivity disorder, combined type -08/14/24 received letter from PCP ok to re-start ADHD rx and being monitored B/P and RX by PCP patient educated on healthy diet and excise and healthy B/P and HR UDS random dextroamphetamine 20 mg in am and 5 mg noon Last sent 04/13 no refill needed today ADHD stimulates education Discuss with patient risk of misuse, abuse, and addiction before prescribing stimulant medicines. 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 Random UDS [place] prescription reviewed refer to Dorie for therapy and work on ADHD 08/14/24 received letter from PCP approved ADHD rx and being monitored B/P and RX by PCP patient educated on healthy diet and excise and healthy B/P and HR discuss cardiovascular and BP and stimualtes use risk 4. Elevated blood pressure educated on healthy b/p 120/80 monitor b/p at home refer to PCP, heart healthy diet and excise limit salt intake limit soda intake and caffiene increase water ON B/P RX PCP schedule to see PCP and labs ordered by PCP . Long-term drug therapy 09/02/2024 Negative depression screening (ICD-10 - Z13.31) 1. [...] abuse, and addiction before prescribing stimulant medicines. 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 Random UDS [place] prescription reviewed refer to Dorie for therapy and work on ADHD 08/14/24 received letter from PCP approved ADHD rx and being monitored B/P and RX by PCP patient educated on healthy diet and excise and healthy B/P and HR discuss cardiovascular and BP and stimualtes use risk 4. Elevated blood pressure- improved on RX educated on healthy b/p 120/80 monitor b/p at home refer to PCP, heart healthy diet and excise limit salt intake limit soda intake and caffiene increase water ON B/P RX PCP schedule to see PCP and labs ordered by PCP . Long-term drug therapy 11/10/2024 Attention-defici t hyperactivity disorder, combined type (ICD-10 - F90.2) 12/02/2024 Major depressive disorder, recurrent, mild (ICD-10 - [...] abuse, and addiction before prescribing stimulant medicines. 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 Elevated blood pressure- improved on RX educated on healthy b/p 120/80 monitor b/p at home refer to PCP, heart healthy diet and excise limit salt intake limit soda intake and caffiene increase water ON B/P RX PCP schedule to see PCP and labs ordered by PCP . Long-term drug therapy 12/24/2024 Depression, major, recurrent, mild (ICD-10 - F33.0) 01/10/2025 Generalized anxiety disorder (ICD-10 - F41.1) 01/10/2025 Depression, major, recurrent, mild (ICD-10 - F33.0) 01/24/2025 Generalized anxiety disorder (ICD-10 - F41.1) 01/24/2025 Depression, major, recurrent, mild (ICD-10 - F33.0) 01/25/2025 Attention-defici t hyperactivity disorder, combined type (ICD-10 - F90.2) 01/25/2025 Attention-defici t hyperactivity disorder, combined type (ICD-10 - F90.2) 02/07/2025 Generalized anxiety disorder (ICD-10 - F41.1) 02/07/2025 Depression, major, recurrent, mild (ICD-10 - F33.0) 02/21/2025 Generalized anxiety disorder (ICD-10 - F41.1) 02/21/2025 Depression, major, recurrent, mild (ICD-10 - F33.0) 03/03/2025 Major depressive disorder, recurrent, mild (ICD-10 [...] abuse, and addiction before prescribing stimulant medicines. 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 Long-term drug therapy 12/17/2024 Attention-defici t hyperactivity disorder, combined type (ICD-10 - F90.2) 12/24/2024 Anxiety disorder, unspecified (ICD-10 - F41.9) 03/03/2025 Negative depression screening (ICD-10 - Z13.31) [...] abuse, and addiction before prescribing stimulant medicines. 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 Random UDS [place] prescription reviewed refer therapy 12/24/24 11 am [...] ordered by PCP . Long-term drug therapy 12/24/2024 ADHD (attention deficit hyperactivity disorder), combined type (ICD-10 - F90.2) 12/02/2024 Negative depression screening (ICD-10 - Z13.31) 1. [...] abuse, and addiction before prescribing stimulant medicines. 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 Elevated blood pressure- improved on RX educated [...] abuse, and addiction before prescribing stimulant medicines. 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 Random UDS [place] prescription reviewed refer therapy 12/24/24 11 am [...] ordered by PCP . Long-term drug therapy 09/02/2024 Encounter for screening for cardiovascular disorders (ICD-10 - Z13.6) 1. depressive Wellbutrin SR 100 mg twice [...] abuse, and addiction before prescribing stimulant medicines. 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 Random UDS [place] prescription reviewed refer to Dorie for therapy and work on ADHD 08/14/24 received letter from PCP approved ADHD rx and being monitored B/P and RX by PCP patient educated on healthy diet and excise and healthy B/P and HR discuss cardiovascular and BP and stimualtes use risk 4. Elevated blood pressure- improved on RX educated on healthy b/p 120/80 monitor b/p at home refer to PCP, heart healthy diet and excise limit salt intake limit soda intake and caffiene increase water ON B/P RX PCP schedule to see PCP and labs ordered by PCP . Long-term drug therapy 06/28/2024 Major depressive disorder, recurrent, mild (ICD-10 - F33.0) 1. depressive Wellbutrin SR 100 mg twice a day obtain labs PCP- see every 6 months SEE PCP with B/P HR educated on all medications, benefits, side effects [...] 3. Attention deficit hyperactivity disorder, combined type -08/14/24 received letter from PCP ok to re-start ADHD rx and being monitored B/P and RX by PCP patient educated on healthy diet and excise and healthy B/P and HR UDS random dextroamphetamine 20 mg in am and 5 mg noon Last sent 04/13 no refill needed today ADHD stimulates education Discuss with patient risk of misuse, abuse, and addiction before prescribing stimulant medicines. 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 Random UDS [place] prescription reviewed refer to Dorie for therapy and work on ADHD 08/14/24 received letter from PCP approved ADHD rx and being monitored B/P and RX by PCP patient educated on healthy diet and excise and healthy B/P and HR discuss cardiovascular and BP and stimualtes use risk 4. Elevated blood pressure educated on healthy b/p 120/80 monitor b/p at home refer to PCP, heart healthy diet and excise limit salt intake limit soda intake and caffiene increase water ON B/P RX PCP schedule to see PCP and labs ordered by PCP . Long-term drug therapy 03/30/2024 Generalized anxiety disorder (ICD-10 - F41.1) 1. major depressive episodes, mild - Wellbutrin SR 100 mg twice a day obtain labs PCP- see every 6 months SEE PCP with B/P HR educated on all medications, benefits, side effects [...] 3. Attention deficit hyperactivity disorder, combined type -08/14/24 received letter from PCP john to re-start ADHD rx and being monitored B/P and RX by PCP patient educated on healthy diet and excise and healthy B/P and HR UDS random dextroamphetamine 20 mg in am and 5 mg noon Last sent 04/13 no refill needed today ADHD stimulates education Discuss with patient risk of misuse, abuse, and addiction before prescribing stimulant medicines. 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 Random UDS [place] prescription reviewed refer to Dorie for therapy and work on ADHD Educated patient unable to switch pharmacy or switch dosing for control substance once sent to pharmacy related to shortages or other reasons 08/14/24 received letter from PCP john to re-start ADHD rx and being monitored B/P and RX by PCP patient educated on healthy diet and excise and healthy B/P and HR 4. Long-term drug therapy 03/30/2024 Attention-defici t hyperactivity disorder, combined type (ICD-10 - F90.2) 1. major depressive episodes, mild - Wellbutrin SR 100 mg twice a day obtain labs PCP- see every 6 months SEE PCP with B/P HR educated on all medications, benefits, side effects [...] 3. Attention deficit hyperactivity disorder, combined type -08/14/24 received letter from PCP john to re-start ADHD rx and being monitored B/P and RX by PCP patient educated on healthy diet and excise and healthy B/P and HR UDS random dextroamphetamine 20 mg in am and 5 mg noon Last sent 04/13 no refill needed today ADHD stimulates education Discuss with patient risk of misuse, abuse, and addiction before prescribing stimulant medicines. 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 Random UDS [place] prescription reviewed refer to [facility] for therapy and work on ADHD Educated patient unable to switch pharmacy or switch dosing for control substance once sent to pharmacy related to shortages or other reasons 08/14/24 received letter from PCP john to re-start ADHD rx and being monitored B/P and RX by PCP patient educated on healthy diet and excise and healthy B/P and HR 4. Long-term drug therapy 06/28/2024 Generalized anxiety disorder (ICD-10 - F41.1) 1. depressive Wellbutrin SR 100 mg twice a day obtain labs PCP- see every 6 months SEE PCP with B/P HR educated on all medications, benefits, side effects [...] 3. Attention deficit hyperactivity disorder, combined type -08/14/24 received letter from PCP john to re-start ADHD rx and being monitored B/P and RX by PCP patient educated on healthy diet and excise and healthy B/P and HR UDS random dextroamphetamine 20 mg in am and 5 mg noon Last sent 04/13 no refill needed today ADHD stimulates education Discuss with patient risk of misuse, abuse, and addiction before prescribing stimulant medicines. 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 Random UDS [place] prescription reviewed refer to [facility] for therapy and work on ADHD 08/14/24 received letter from PCP approved ADHD rx and being monitored B/P and RX by PCP patient educated on healthy diet and excise and healthy B/P and HR discuss cardiovascular and BP and stimualtes use risk 4. Elevated blood pressure educated on healthy b/p 120/80 monitor b/p at home refer to PCP, heart healthy diet and excise limit salt intake limit soda intake and caffiene increase water ON B/P RX PCP schedule to see PCP and labs ordered by PCP . Long-term drug therapy 09/02/2024 Generalized anxiety disorder (ICD-10 - F41.1) 1. [...] type - 08/14/24 received letter from PCP john ADHD rx and being monitored B/P and RX by PCP patient educated on healthy diet and excise and healthy B/P and HR UDS random dextroamphetamine 20 mg in am and 5 mg noon ADHD stimulates education Discuss with patient risk of misuse, abuse, and addiction before prescribing stimulant medicines. 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 Random UDS [place] prescription reviewed refer to [facility] for therapy and work on ADHD 08/14/24 received letter from PCP approved ADHD rx and being monitored B/P and RX by PCP patient educated on healthy diet and excise and healthy B/P and HR discuss cardiovascular and BP and stimualtes use risk 4. Elevated blood pressure- improved on RX educated [...] abuse, and addiction before prescribing stimulant medicines. 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 Long-term drug therapy 12/02/2024 Encounter for screening for cardiovascular disorders (ICD-10 - Z13.6) 1. depressive Wellbutrin SR 100 mg twice [...] abuse, and addiction before prescribing stimulant medicines. 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 Random UDS [place] prescription reviewed refer therapy 12/24/24 11 am [facility] 08/14/24 received letter from PCP approved ADHD rx and being monitored B/P and RX by PCP patient educated on healthy diet and excise and healthy B/P and HR discuss cardiovascular and BP and stimualtes use risk 4. Elevated blood pressure- improved on RX educated on healthy b/p 120/80 monitor b/p at home refer to PCP, heart healthy diet and excise limit salt intake limit soda intake and caffiene increase water ON B/P RX PCP schedule to see PCP and labs ordered by PCP . Long-term drug therapy 03/03/2025 Other correction (current) drug therapy (ICD-10 - Z79.899) 1. [...] abuse, and addiction before prescribing stimulant medicines. Bra[employer] patients not to share their prescribed stimulant [...] than warranted by the prescribed dosage. Random S [place] prescription reviewed refer therapy 12/24/24 11 am [facility] 08/14/24 received letter from PCP approved ADHD [...] ordered by PCP . Long-term drug therapy 12/02/2024 Generalized anxiety disorder (ICD-10 - F41.1) 1. [...] abuse, and addiction before prescribing stimulant medicines. 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 Elevated blood pressure- improved on RX educated on healthy b/p 120/80 monitor b/p at home refer to PCP, heart healthy diet and excise limit salt intake limit soda intake and caffiene increase water ON B/P RX PCP schedule to see PCP and labs ordered by PCP . Long-term drug therapy 09/02/2024 Attention-defici t hyperactivity disorder, combined type (ICD-10 [...] abuse, and addiction before prescribing stimulant medicines. 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 Random UDS [place] prescription reviewed refer to [facility] for therapy and work on ADHD 08/14/24 received letter from PCP approved ADHD rx and being monitored B/P and RX by PCP patient educated on healthy diet and excise and healthy B/P and HR discuss cardiovascular and BP and stimualtes use risk 4. Elevated blood pressure- improved on RX educated on healthy b/p 120/80 monitor b/p at home refer to PCP, heart healthy diet and excise limit salt intake limit soda intake and caffiene increase water ON B/P RX PCP schedule to see PCP and labs ordered by PCP . Long-term drug therapy 06/28/2024 Attention-defici t hyperactivity disorder, combined type (ICD-10 - F90.2) 1. depressive Wellbutrin SR 100 mg twice a day obtain labs PCP- see every 6 months SEE PCP with B/P HR educated on all medications, benefits, side effects [...] 3. Attention deficit hyperactivity disorder, combined type -08/14/24 received letter from PCP ok to re-start ADHD rx and being monitored B/P and RX by PCP patient educated on healthy diet and excise and healthy B/P and HR UDS random dextroamphetamine 20 mg in am and 5 mg noon Last sent 04/13 no refill needed today ADHD stimulates education Discuss with patient risk of misuse, abuse, and addiction before prescribing stimulant medicines. 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 Random UDS [place] prescription reviewed refer to [facility] for therapy and work on ADHD 08/14/24 received letter from PCP approved ADHD rx and being monitored B/P and RX by PCP patient educated on healthy diet and excise and healthy B/P and HR discuss cardiovascular and BP and stimualtes use risk 4. Elevated blood pressure educated on healthy b/p 120/80 monitor b/p at home refer to PCP, heart healthy diet and excise limit salt intake limit soda intake and caffiene increase water ON B/P RX PCP schedule to see PCP and labs ordered by PCP . Long-term drug therapy 03/30/2024 Other correction (current) drug therapy (ICD-10 - Z79.899) 1. major depressive episodes, mild - Wellbutrin SR 100 mg twice a day obtain labs PCP- see every 6 months SEE PCP with B/P HR educated on all medications, benefits, side effects [...] 3. Attention deficit hyperactivity disorder, combined type -08/14/24 received letter from PCP john to re-start ADHD rx and being monitored B/P and RX by PCP patient educated on healthy diet and excise and healthy B/P and HR UDS random dextroamphetamine 20 mg in am and 5 mg noon Last sent 04/13 no refill needed today ADHD stimulates education Discuss with patient risk of misuse, abuse, and addiction before prescribing stimulant medicines. 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 Random UDS [place] prescription reviewed refer to [facility] for therapy and work on ADHD Educated patient unable to switch pharmacy or switch dosing for control substance once sent to pharmacy related to shortages or other reasons 08/14/24 received letter from PCP john to re-start ADHD rx and being monitored B/P and RX by PCP patient educated on healthy diet and excise and healthy B/P and HR 4. Long-term drug therapy 12/02/2024 Attention-defici t hyperactivity disorder, combined type (ICD-10 [...] abuse, and addiction before prescribing stimulant medicines. 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 Random UDS [place] prescription reviewed refer therapy 12/24/24 11 am [facility] 08/14/24 received letter from PCP approved ADHD rx and being monitored B/P and RX by PCP patient educated on healthy diet and excise and healthy B/P and HR discuss cardiovascular and BP and stimualtes use risk 4. Elevated blood pressure- improved on RX educated on healthy b/p 120/80 monitor b/p at home refer to PCP, heart healthy diet and excise limit salt intake limit soda intake and caffiene increase water ON B/P RX PCP schedule to see PCP and labs ordered by PCP . 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 [...] abuse, and addiction before prescribing stimulant medicines. 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 Random UDS [place] prescription reviewed refer to [facility] for therapy and work on ADHD 08/14/24 received letter from PCP approved ADHD rx and being monitored B/P and RX by PCP patient educated on healthy diet and excise and healthy B/P and HR discuss cardiovascular and BP and stimualtes use risk 4. Elevated blood pressure- improved on RX educated on healthy b/p 120/80 monitor b/p at home refer to PCP, heart healthy diet and excise limit salt intake limit soda intake and caffiene increase water ON B/P RX PCP schedule to see PCP and labs ordered by PCP . Long-term drug therapy 06/28/2024 Other correction (current) drug therapy (ICD-10 - Z79.899) 1. depressive Wellbutrin SR 100 mg twice a day obtain labs PCP- see every 6 months SEE PCP with B/P HR educated on all medications, benefits, side effects [...] 3. Attention deficit hyperactivity disorder, combined type -08/14/24 received letter from PCP john to re-start ADHD rx and being monitored B/P and RX by PCP patient educated on healthy diet and excise and healthy B/P and HR UDS random dextroamphetamine 20 mg in am and 5 mg noon Last sent 04/13 no refill needed today ADHD stimulates education Discuss with patient risk of misuse, abuse, and addiction before prescribing stimulant medicines. 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 Random UDS [place] prescription reviewed refer to [facility] for therapy and work on ADHD 08/14/24 received letter from PCP approved ADHD rx and being monitored B/P and RX by PCP patient educated on healthy diet and excise and healthy B/P and HR discuss cardiovascular and BP and stimualtes use risk 4. Elevated blood pressure educated on healthy b/p 120/80 monitor b/p at home refer to PCP, heart healthy diet and excise limit salt intake limit soda intake and caffiene increase water ON B/P RX PCP schedule to see PCP and labs ordered by PCP . 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 [...] abuse, and addiction before prescribing stimulant medicines. 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 Elevated blood pressure- improved on RX educated on healthy b/p 120/80 monitor b/p at home refer to PCP, heart healthy diet and excise limit salt intake limit soda intake and caffiene increase water ON B/P RX PCP schedule to see PCP and labs ordered by PCP . Long-term drug therapy 01/10/2025 Other Client participated in individual psychotherapy (CBT/Suppptive) related to his hs of anxiety and depression. Based on today's session continued psychotherapy is recommended with no changes to treatment plan. Client presented to session well groomed and fully oriented with no risk of harm to self or others. Client verbal and engaged throughout with appropriate mood and affect. Reported upon presentation that he has been pretty good since last seen on 12.24.2024. Added that his mood has been decent as well since last seen. Focus of session centered on establishing rapport and buildin trust with client as well as exploring his word view and past relationships. Client receptive to session feedback and inquires. Noted that he has struggled paying power bill and other bills. Admitted to a long hx of procrastinating . Stated that he values enjoying his life the most and tends to avoid adult responsibiities . He and have been physically for five years. Stated that she has accused him of being lazy and dirty. Next session in two weeks. 01/24/2025 Other Client participated in individual psychotherapy (CBT/Suppptive) related to his hs of anxiety and depression. Based on today's session continued psychotherapy is recommended with no changes to treatment plan. Client presented to session well groomed and fully oriented with no risk of harm to self or others. Client verbal and engaged throughout with appropriate mood and affect. Reported upon presentation that he has been pretty good since last seen on 01.10.2025. Added that he had a productive but not 100 percent successful weekend. 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 Session per his request continued to focus on his struggle paying bills on time even thou he has the money to pay them.Reiterated that he has a high need for immediate grafication and hx of avoiding conflict as well as not liking to be inconvienced. Moreover asked to explore relationship that he has with money. Client receptive to session feedback and inqueries. Next session in two weeks. 02/07/2025 Other Client participated in individual psychotherapy (CBT/Suppptive) related to his hs of anxiety and depression. Based on today's session continued psychotherapy is recommended with no changes to treatment plan. Client presented to session well groomed and fully oriented with no risk of harm to self or others. Client verbal and engaged throughout with appropriate mood and affect. Reported upon presentation that he has been pretty good since last seen on 01.10.2025. Added that he had a more productive weekend then usual. Stated that he helped a friend with some household repairs. Further shared that friend and he have a deal that if one of them gets a PH.D. then the other has to get one as well. Friend has decided to pursue his PH.D. so client has been thinking about pursuing PH.D in social work and start a new career at his age. Remainder of session spent addressing his relationship hx and impact it has had on his depression and anxiety. He spoke about his three marriages and fear of being alone. Admitted that he has struggled accepting people for they choose to be. Admitted that he got that from his father. Older brother has same issue as well. Client receptive to session feedbacl and inqueries. Next session in two weeks. 02/21/2025 Other Client participated in individual psychotherapy (CBT/Suppptive) related to his hs of anxiety and depression. Based on today's session continued psychotherapy is recommended with no changes to treatment plan. Client presented to session well groomed and fully oriented with no risk of harm to self or others. Client verbal and engaged throughout with appropriate mood and affect. Reported upon presentation that he has been pretty good since last seen on 02.07.2025. Added that he had a procuctive weekend. Noted that the enjoys doing home repairs as it gives him a sense of accomplishment. Client spoke about his older brother and relationship with estranged . Reiterated that he and brother both struggle accepting people for who they choose to be. Further shared that they both like to rescue females and both have been three times. Added however that is current marriage is still no forward movement or backward movement. Client admitted that he is selffish and a little jaded to life and what he has been through. Client answered phrases to help trigger refelctions on who he is. 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 Client receptive to session feedback and inqueries. Next session in two weeks. Plan Of Treatment Next Appt Details Provider Name:Duong harp, 03/09/2025 08:00:00 AM, [address], [address], [id number], Provider Name:Duong Dexter Hung harp, 03/23/2025 08:00:00 AM, [address], [address], [id number], Provider Name:Duong harp, 04/06/2025 08:00:00 AM, [address], [address], [id number], Provider Name:Emmy Ruy , 06/03/2025 08:30:00 AM, [address], [facility] [address], [place], [address], Insurance Providers Payer Name Payer Address Payer Phone Subscriber Number Group Number Insured Name Patient Relationship to Insured Coverage Start Date Coverage End Date [facility] [address] [place] [address] [id number] MAYA LOPEZ Self - patient is the insured 5 [facility] [address] [place] [address] [id number] MAYA LOPEZ Self - patient is the insured 4 Medical (General) History Medical History History ICD Code Problems: Attention deficit hyperactivit y disorder Attention deficit hyperactivity disorder , combined type Drug indicated Generalized anxiety disorder Long-term drug therapy Recurrent major depressive episodes, mil d Severe recurrent major depression , XR Lumbar Spine 4+ Views Inc luding Flexion/Extension (10/11/2024) Multilevel mild endplate sclerosis with preserved intervertebral disc space and vertebral body heights in the lumbar spine. Mild bilateral facet arthropathy throughout the lumbar spine. Mild levocurvature of the lumbar spine. Mild osteoarthritis of both sacroiliac joints. X-Ray Thoracic Spine 3 Views (10/11/2024) No acute fractures or traumatic malalignment of the thoracic spine. Multilevel intervertebral disc degeneration: mild disc space narrowing, tiny endplate osteophyte formation, and multilevel endplate sclerosis. Vertebral body heights are preserved. The partially visualized lungs and soft tissues appear unremarkable. Surgical History Surgery Date(Month/Year) Tonsilectomy/adenoids 04/21/1981 Sinus surgery 03/21/2014
== END 2025-03-04 17:38 | disposition home or self-care (01) ==
PROVIDERS: PCP Internal Medicine; Visit Provider Internal Medicine
DX: S86.891A Other injury of other muscle(s) and tendon(s) at lower leg level, right leg, initial encounter (principal); S86.892A Other injury of other muscle(s) and tendon(s) at lower leg level, left leg, initial encounter; X58.XXXA Exposure to other specified factors, initial encounter
CPT/HCPCS: 73590